=== PATIENT | female | born 1940 | race Caucasian/White ===

== ENCOUNTER → 2018-10-02 | Outpatient (CLI) | payer OTHER | LOC: HYPER 09-19 14:35 | DX: I89.0 Lymphedema, not elsewhere classified (principal); I87.2 Venous insufficiency (chronic) (peripheral); I77.9 Disorder of arteries and arterioles, unspecified; I10 Essential (primary) hypertension; E78.00 Pure hypercholesterolemia, unspecified; N18.9 Chronic kidney disease, unspecified; M85.80 Other specified disorders of bone density and structure, unspecified site; G31.84 Mild cognitive impairment of uncertain or unknown etiology; J45.909 Unspecified asthma, uncomplicated; F41.9 Anxiety disorder, unspecified; F32.9 Major depressive disorder, single episode, unspecified; Z85.3 Personal history of malignant neoplasm of breast ==

== ENCOUNTER → 2018-10-10 | Outpatient (CLI) | payer OTHER, MEDICARE ==
--- NOTE | 2018-10-10 16:06 | NUR ---
PT DISCHARGED HERE TODAY POST ENDOVENOUS LASER ABLATION TO RIGHT AND LEFT SAMLL SAPHENOUS VEINS. PT SIGNED APPROPRIATE CONSENT. VSS. PROCEDURE COMPLETED BY DR PEREYRA WITH ASSIST OF CYNDEE MATHUR. TOTAL OF VALIUM PO GIVEN WAS 20MG IN [address] PEREYRA ORDER. LIST OF ALLERGIES AND HOME MEDS NOTED PER H&P. PROCEDURE EXPLAINED TO PT WHO VOICES UNDERSTANDING. DISCHARGE INSTRUCTIONS GIVEN TO PT AND TO SON. WRITTEN INSTRUCTIONS ALSO GIVEN. SCRIPTS CALLED INTO [facility] PER DR PEREYRA SOFT DRINK POWDER MIXER JAMIE. PT HOME VIA . NO C/O.
== END | disposition home or self-care (01) ==
LOC: CATH 06:54
DX: I87.322 Chronic venous hypertension (idiopathic) with inflammation of left lower extremity (principal); I87.2 Venous insufficiency (chronic) (peripheral); M79.89 Other specified soft tissue disorders

== ENCOUNTER → 2019-04-05 | Outpatient (CLI) | payer OTHER, MEDICARE | LOC: ULTRA 12:13 | DX: M79.604 Pain in right leg (principal); R22.1 Localized swelling, mass and lump, neck ==